=== PATIENT | female | born 1985 | race Caucasian/White ===

== ENCOUNTER → 2019-08-26 | Outpatient (CLI) | payer MEDICAID ==
--- NOTE | 2019-08-26 17:41 | Diagnostic Imaging Report ---
MRI LT LOWER EXT JOINT W/O TECHNIQUE: Multiplanar, multisequence MR imaging of the left knee was performed without contrast. COMPARISON: None available. INDICATION: Knee pain after injury approximately a week ago. FINDINGS: MENISCI Medial meniscus: Normal. Lateral meniscus: Ill definition of the posterior horn of the lateral meniscus near its root insertion may represent partial-thickness tearing. LIGAMENTS ACL: Complete tear of the ACL in its mid aspect. PCL: Intact. MCL: MCL remains intact but has mild edema on both sides indicative of low-grade sprain. LCL: The lateral collateral ligamentous complex is intact. EXTENSOR MECHANISM The extensor mechanism is intact. CARTILAGE Medial compartment: Medial compartment articular cartilage is well preserved without focal high-grade chondromalacia. Lateral compartment: The lateral compartment articular cartilage is preserved without high-grade chondromalacia. Patellofemoral compartment: The patellofemoral articular cartilage is well preserved without high-grade chondromalacia. BONE There is a small focus of contusion in the posterior aspect of the lateral tibial plateau. No macroscopic fracture line. SOFT TISSUE Small knee joint effusion. No Jansen's cyst. IMPRESSION: 1. Complete tear of the ACL. 2. Low-grade MCL sprain. 3. Potential radial tear in the posterior horn of the lateral meniscus near its root insertion. 4. Small focus of bone contusion in the posterior aspect of the lateral tibial plateau. Dictated by: Dictated on workstation # [id number]
== END ==
LOC: RAD 16:03
PROVIDERS: ATTEND Orthopaedic Surgery
DX: S83.512A Sprain of anterior cruciate ligament of left knee, initial encounter (principal); S83.412A Sprain of medial collateral ligament of left knee, initial encounter; S80.12XA Contusion of left lower leg, initial encounter
CPT/HCPCS: 73721

== ENCOUNTER 2019-11-29 12:59 | Outpatient (RCR) | payer MEDICAID | END 2019-12-01 | disposition home or self-care (01) | PROVIDERS: ATTEND Orthopaedic Surgery | DX: M23.612 Other spontaneous disruption of anterior cruciate ligament of left knee (principal) ==

== ENCOUNTER 2019-12-29 12:56 | Outpatient (RCR) | payer MEDICAID | END 2019-12-29 14:39 | disposition home or self-care (01) | PROVIDERS: ATTEND Orthopaedic Surgery | DX: M23.612 Other spontaneous disruption of anterior cruciate ligament of left knee (principal) ==

== ENCOUNTER 2020-02-09 11:28 | Outpatient (RCR) | payer MEDICAID | END 2020-02-21 15:00 | disposition home or self-care (01) | PROVIDERS: ATTEND Orthopaedic Surgery | DX: S83.512A Sprain of anterior cruciate ligament of left knee, initial encounter (principal); Z91.09 Other allergy status, other than to drugs and biological substances; X58.XXXA Exposure to other specified factors, initial encounter ==